=== PATIENT | female | born 1975 | race Caucasian/White ===

== ENCOUNTER 2017-07-27 08:54 | Day surgery (SDC) | payer OTHER ==
[~2017-07-27] VITALS: Ht 154.9 cm; Wt 86.4 kg
[2017-07-27] VITALS (15 sets, daily range): BP systolic 113–148; BP diastolic 62–95; PULSE 52–86; RESP 11–26; Ht 154.9 cm; Wt 86.4 kg
[~2017-07-27 08:54] MED LIST: ACET-915; PREN1TAB49
[2017-07-27] MEDS ORDERED: BUPIVACAINE 0.25% (MPF) 30 ML INJ ONE ×2 (11:49→11:56)
[2017-07-27] MEDS ORDERED: DEXAMETHASONE 4 MG/ML 1 ML INJ ONE (11:55)
[2017-07-27] MEDS ORDERED: MIDAZOLAM 1 MG/ML 2 ML INJ ONE (11:55)
[2017-07-27] MEDS ORDERED: GLYCOPYRROLATE 0.4 MG INJ ONE (11:55)
[2017-07-27] MEDS ORDERED: ONDANSETRON 4 MG INJ ONE (11:55)
[2017-07-27] MEDS ORDERED: FENTAnyl 50 MCG/ML VIAL ONE (11:55)
[2017-07-27] MEDS ORDERED: CEFAZOLIN 1 GM INJ ONE (11:55)
[2017-07-27] MEDS ORDERED: ROCURONIUM 50 MG INJ ONE (11:55)
[2017-07-27] MEDS ORDERED: PROPOFOL 20 ML ONE (11:55)
[2017-07-27] MEDS ORDERED: NEOSTIGMINE 3 MG/3 ML SYRINGE ONE (11:55)
[2017-07-27] MEDS ORDERED: ONDANSETRON 4 MG INJ IV PRN (12:30)
[2017-07-27] MEDS ORDERED: HYDROmorphONE (0.2 MG/ML) 10ML SYG IV PRN ×2 (12:30)
[2017-07-27] MEDS ORDERED: EPHEDrine SULFATE 50 MG/5 ML SYG IV PRN (12:30)
[2017-07-27] MEDS ORDERED: OXYCODONE/ACETAMINOPHEN (5/325) TAB PO PRN ×2 (12:30)
[2017-07-27] MEDS ORDERED: hydrALAzine 20 MG INJ IV PRN (12:30)
[2017-07-27] MEDS ORDERED: LABETALOL HCL 20MG INJ IV PRN (12:30)
[2017-07-27] MEDS ORDERED: ALBUTEROL 0.083% (NEB) 2.5 MG/3 ML AMP HHN PRN (12:30)
[2017-07-27] MEDS ORDERED: TRIMETHOBENZAMIDE 100 MG/ML VIAL IM PRN (12:30)
[2017-07-27] MEDS ORDERED: DIPHENHYDRAMINE 50 MG INJ IV PRN (12:30)
[2017-07-27] MEDS ORDERED: FENTAnyl 50 MCG/ML VIAL IV PRN ×3 (12:30)
[2017-07-27] MEDS ORDERED: MIDAZOLAM 1 MG/ML 2 ML INJ IV PRN (12:30)
[2017-07-27] MEDS ORDERED: MEPERIDINE 25 MG INJ IV PRN (12:30)
[2017-07-27] MEDS ORDERED: IPRATROPIUM (NEB) 0.5 MG/2.5 ML AMP HHN PRN (12:30)
--- NOTE | 2017-07-27 12:54 | OPR ---
Date/Time of Note Date/Time of Note DATE: 07/27/17 TIME: 12:51 Operative Report Procedure Date: Jul 27, 2017 Preoperative Diagnosis symptomatic gallstones Postoperative Diagnosis same Operation/Procedure Performed 1. laparoscopic cholecystectomy 2. therapeutic injection of subcutaneous local anesthesia Surgeon see signature line Exterminator Helper Termite jarrell dawkins Anesthesia Type: general Estimated Blood Loss: 0 - 10 ml's Transfusion none Specimen gallbladder Grafts/Implants none Complications none Pt Condition Post Procedure: stable Indications This is a 42-year-old female with symptomatic gallstones. She requests surgical excision. Risks alternatives benefits and percent were discussed the patient. Patient expressed understanding consents to the operation. Procedure Description Patient taken to the OR and prepped and draped in usual sterile fashion. Surgical timeout was performed. IV antibiotics given. Infraumbilical incision is made transversely with a 15 blade. Dissection Carrs carried onto the fascia. Fascia was grasped with Auburn's and divided with curved Alejandro scissors. 0 Vicryl U stitch was placed into the fascia. Blueness on trocar is introduced. Pneumoperitoneum is established. Midepigastric 12 mm optical trocar was placed under direct visualization. Right upper quadrant upper flank 5 mm optical trochars were placed under direct visualization. Upon initial inspection the gallbladder had some adhesions which were taken down bluntly. Gallbladder was retracted in a lateral our direction. The cystic duct was carefully dissected out. The critical view was established. The cystic duct was divided with 3 clips proximal and distally this was divided with 35 mm echelon vascular stapler because of the thickened tissues. The cystic artery was divided with 3 clips proximal and clip distal. The gallbladder is taken of the gallbladder bed. There is good hemostasis. The gallbladder is retrieved using Endo Catch bag. Ports removed under direct visualization. 0 Vicryl U stitch was tied down. Skin is closed with interrupted and running 4-0 Monocryl. Therapeutic subcutaneous local anesthesia was injected throughout the incision site. Dry dressings were applied. Amando COMBS Jul 27, 2017 12:54
[2017-07-27] MEDS ORDERED: HYDROCODONE/APAP (5/325) TAB PO ONE (13:00)
[2017-07-27] MEDS: HYDROmorphONE (0.2 MG/ML) 10ML SYG IV PRN ×2 (13:23→13:46)
[2017-07-27] MEDS ORDERED: CEFAZOLIN 2 GM/50 ML (PMX) 50 ML IVPB ONE (13:30)
[2017-07-27] MEDS ORDERED: KETOROLAC 30 MG INJ IV ONE (13:30)
[2017-07-27] MEDS ORDERED: SOD CHLORIDE 0.9% 1,000 ML IV ONE (13:30)
== END 2017-07-27 15:15 | disposition home or self-care (01) ==
LOC: SDS 08:54
PROVIDERS: ATTEND Surgery
DX: K80.10 Calculus of gallbladder with chronic cholecystitis without obstruction (principal)
CPT/HCPCS: 47562; 84703; 88304; J0690; J1100; J1170; J2175; J2250; J2405; J2710; J3010; Z7512; Z7610

== ENCOUNTER 2017-08-25 11:40 | Emergency (ER) | END 2017-08-25 11:55 | disposition left against medical advice (07) ==